=== PATIENT | female | born 1985 | race Caucasian/White ===

== ENCOUNTER 2021-04-16 09:04 | Emergency (ER) | payer SELFPAY ==
[2021-04-16 09:09] VITALS: BP 133/92; PULSE 99; RESP 16; TEMP 37.2; O2SAT 97; BMI 23.1
[2021-04-16 09:18] VITALS: PULSE 99; RESP 18; TEMP 37.2; O2SAT 97
--- NOTE | 2021-04-16 09:29 | W.ED.ANIMALB ---
HPI - Animal Bite General: Chief Complaint: Animal Bite Stated Complaint: DOG BITE RLE:WAS TREATED 1 WK AGO IN ID Time Seen by Provider: 04/16/21 09:08 History of Present Illness: HPI narrative: Patient with wound to the right leg lower aspect that was treated at [place] [facility]. Patient was placed on Keflex and Bactrim and has been taking that medication. Patient has been doing treatment to the wound with soap and water keep it clean and it is not healing well. Tetanus is up-to-date. complaint: animal bite Onset (ago): week(s) Animal: dog Mechanism: bite Location - Extremities: Right: lower leg Pain description: dull Associated symptoms: Reports no associated symptoms; Deny chills, fever(s) or headache(s) Treatments prior to arrival: irrigation and antibiotic ointment Review of Systems Const: Denies: fever(s), chills or body aches Eyes: Denies: change in vision or blurry vision ENMT: Denies: throat pain or nasal congestion Card: Denies: chest pain or dyspnea on exertion Resp: Denies: dyspnea, productive cough or non-productive cough GI: Denies: abdominal pain, nausea or vomiting Musc: Denies: extremity pain Skin/Breast: Reports: other (Wound right lower extremity that is slow to heal despite patient's treatmen); Denies: rash Neuro: Denies: headache(s) Psych: Denies: anxiety or depression Guille/Lymph: Denies: easy bruising [facility] Female Reproductive History: Date of last menstrual period: 04/09/21 Physical Exam Const: COMMON NORMALS: no acute distress GENERAL APPEARANCE: cooperative Extremity: RIGHT LOWER EXTREMITY: Yes lower leg (Open wound with various stages of healing approximately quarter size with m) OTHER: No other areas of the leg appear to be infected no areas of cellulitis noted wound is healing slowly. Wet-to-dry dressings will be initiated. Psych: COMMON NORMALS: mental status grossly normal Course Vital Signs: Vital signs: Vital Signs Temperature 98.9 F 04/16/21 09:18 Pulse Rate 99 04/16/21 09:18 Respiratory Rate 18 04/16/21 09:18 Blood Pressure 133/92 04/16/21 09:09 Pulse Oximetry 97 04/16/21 09:18 MDM - Animal Bite MDM Narrative: Medical decision making narrative: Offers made for wound clinic follow-up the patient declined due to cost. Patient was informed to start wet-to-dry dressings and do that for next 2 to 3 weeks. If worsening symptoms are to return here or with her primary care they will establish with. Patient's wound appears to be healing slowly but no overt signs of overwhelming infection noted. Patient currently on antibiotics. Patient was given clindamycin to take after current antibiotics are finished. Discharge Plan Discharge Patient Disposition: Home Clinical Impression: Dog bite Qualifiers: Encounter type: subsequent encounter Qualified Code(s): W54.0XXD - Bitten by dog, subsequent encounter Condition: Stable Prescriptions: New Celebrex 100 mg capsule 100 mg PO BID Qty: 20 RF: 0 clindamycin HCl 300 mg capsule 300 mg PO Q8H 7 Days Qty: 21 RF: 0 Discharge Orders: Discharge ED (Routine); Ordered 04/16/21 Ordered By: Dontrell Joshua Discharge Diet: Usual diet Discharge Activity: Resume usual activity Patient Instructions: Acute Wound Care (ED) Activity Restrictions/Additional Instructions: Follow-up with medical provider as directed. Take medications as prescribed. Return to the ER or your medical provider if condition worsens. Please read and understand discharge instructions. If any questions ask please. Perform wet-to-dry dressings 2-3 times a day daily for next 2 to 3 weeks wound. If no significant improvement noted in next week to 2 can ask for referral to wound clinic. Establish with primary care provider. Coding Level of Care Code ED Riding Double for [place] Fwd Exam Expanded Problem Focused
== END 2021-04-16 09:50 | disposition home or self-care (01) ==
PROVIDERS: Emergency Provider Nurse Practitioner Family
DX: S81.851A Open bite, right lower leg, initial encounter (principal); W54.0XXA Bitten by dog, initial encounter
CPT/HCPCS: 99281